=== PATIENT | female | born 1990 | race Caucasian/White ===

== ENCOUNTER → 2016-09-13 | Day surgery (SDC) | payer OTHER ==
[2016-09-04 09:01] VITALS: BMI 26.0
[~2016-09-13] VITALS: Ht 165.1 cm; Wt 70.9 kg
[~2016-09-13] MED LIST: HYDR-5688 PO; LIDOCAINE HCL 2% 2 ML VIAL (20MG/ML) ONE; MIDAZOLAM HCL 1 MG/ML 2ML VIAL ONE; MULT-506 PO; ONDANSETRON INJ 2 MG/ML 2 ML VIAL ONE; POLY335019 PO; PROB1TAB16 PO; PROPOFOL IV EMULSION 10 MG/ML 20 ML VIAL IV ONE; SODIUM CHLORIDE 0.9% 500ML 500 ML IV ONE
[2016-09-13 08:31] VITALS: Ht 165.1 cm; Wt 70.9 kg
--- NOTE | 2016-09-13 08:46 | Endo History and Physical ---
History & Physical Date of Service: Sep 13, 2016. Chief Complaint: BLOOD IN STOOL, GROSS BLOOD ON DIGITAL IMAGE Referring Physician: DR. IVETH MILLS History of Present Illness 26 yo CF who presents for colonoscopy secondary to blood in stool. Past Surgical History Hx Cardiac Surgery: No Hx Internal Defibrillator: No Hx Pacemaker: No Hx Abdominal Surgery: No Hx of Implantable Prosthesis: No Hx Post-Op Nausea and Vomiting: No Hx Cancer Surgery: No Hx Thoracic Surgery: No Hx Orthopedic: No Hx Urinary Tract Surgery: No Family History Polyp Social History Smoking Status: Never Smoker Hx Substance Use: No Hx Alcohol Use: No Allergies Coded Allergies: No Known Allergies (Verified , 09/13/16) Current Medications Reported Home Medications Medications Dose Route/Sig Max Daily Dose Days Date Category Probiotic (Probiotic Product) 1 Tab Tab 1 Tab PO QPM 09/04/16 Reported Multivitamin (Multivitamins) Tab 1 Tab PO QPM 09/04/16 Reported Vital Signs Weight (Kilograms): 70.91 Height (Feet): 5 Height (Inches): 5 Date Time Temp Pulse Resp B/P Pulse Ox O2 Delivery O2 Flow Rate FiO2 09/13/16 08:39 36.6 89 18 141/83 99 Room Air Physical Exam General Appearance: WD/WN, no apparent distress Respiratory/Chest: Auscultation: breath sounds normal Cardiovascular: Heart Auscultation: RRR Abdomen: Bowel Sounds: normal Inspection & Palpation: soft, non-distended, no tenderness, guarding & rebound Assessment and Plan Assessment: 26 yo CF who presents for colonoscopy secondary to blood in stool. Plan: Proceed with colonoscopy.
--- NOTE | 2016-09-13 09:02 | Discharge Instructions ---
Endoscopy Patient Instructions Date / Procedure(s) Performed Sep 13, 2016. Colonoscopy Allergy Information Coded Allergies: No Known Allergies (Verified , 09/13/16) Discharge Date / Findings Sep 13, 2016. Internal hemorrhoids Medication Instructions OK to resume all medications today as prescribed Reported Home Medications Medications Dose Route/Sig Max Daily Dose Days Date Category Probiotic (Probiotic Product) 1 Tab Tab 1 Tab PO QPM 09/04/16 Reported Multivitamin (Multivitamins) Tab 1 Tab PO QPM 09/04/16 Reported Provider Instructions Activity Restrictions - No exercising or heavy lifting for 24 hours. - Do not drink alcohol the day of the procedure. - Do not drive a car or operate machinery until the day after the procedure. - Do not make any important decisions or sign important papers in 24 hours after the procedure. Following Day: - Return to full activity which may include returning to work/school. Diet Start your diet with liquids and light foods (jello, soup, juice, toast). Then eat your usual diet if not nauseated. Treatment For Common After Affects For mild abdominal pain, bloating, or excessive gas: - Rest - Eat lightly - Lie on right side Follow-Up Information Follow-up with DR. IVETH MILLS as scheduled Anesthesia Information What You Should Know You have had a procedure that required some medicine to reduce anxiety and discomfort. This treatment is called moderate sedation. After receiving the treatment, you may be sleepy, but you will be able to breathe on your own. The effects of the treatment may last for several hours. Follow these instructions along with Activity/Diet recommendations noted above: * Do NOT do anything where dizziness or clumsiness would be dangerous. * Rest quietly at home today, then you can be up and about tomorrow. * Have a responsible person stay with you the rest of today. * You may have had an I.V. today. If so, you may take the dressing off later today. Recommendations Call your doctor if: * Trouble breathing * Continuous vomiting for more than 24 hours * Temperature above 101 degrees * Severe abdominal pain or bloating * Pain not relieved by pain medicine ordered * There is increased drainage or redness from any incision * A large amount of rectal bleeding greater than 2-3 tablespoons. (If you had a polyp/s removed or have hemorrhoids, a small amount of blood - from the rectum is to be expected.) * You have any unanswered questions or concerns. IN THE EVENT OF A SERIOUS EMERGENCY, GO TO THE NEAREST EMERGENCY ROOM Your discharge instructions were prepared by provider Efren Mathis. Patient Instructions Signature Page Peace Quigley Patient (or Guardian) Signature/Date: I have read and understand the instructions given to me by my caregivers. Caregiver/RN/Doctor Signature/Date: The above-named patient and/or guardian has received patient instructions on this date. + Original Patient Signature Page (only) stays with chart. Please make copy for patient.
--- NOTE | 2016-09-13 09:05 | GI REPORT ---
Procedure Date: 09/13/2016 8:46 AM Procedure: Colonoscopy Indications: Rectal bleeding Medicines: Monitored Anesthesia Care Complications: No immediate complications. Estimated Blood Loss: Estimated blood loss: none. Procedure: Pre-Anesthesia Assessment: - Prior to the procedure, a History and Physical was performed, and patient medications and allergies were reviewed. The patient's tolerance of previous anesthesia was also reviewed. The risks and benefits of the procedure and the sedation options and risks were discussed with the patient. All questions were answered, and informed consent was obtained. Prior Anticoagulants: The patient has taken no previous anticoagulant or antiplatelet agents. ASA Grade Assessment: I - A normal, healthy patient. After reviewing the risks and benefits, the patient was deemed in satisfactory condition to undergo the procedure. After I obtained informed consent, the scope was passed under direct vision. Throughout the procedure, the patient's blood pressure, pulse, and oxygen saturations were monitored continuously. The scope was introduced through the anus and advanced to the terminal ileum. The colonoscopy was performed without difficulty. The patient tolerated the procedure well. The quality of the bowel preparation was good. The terminal ileum, ileocecal valve, appendiceal orifice, and rectum were photographed. Findings: Non-bleeding internal hemorrhoids were found during retroflexion. The hemorrhoids were small. The exam was otherwise without abnormality. Impression: - Non-bleeding internal hemorrhoids. - The examination was otherwise normal. - No specimens collected. Recommendation: - Resume previous diet. - Continue present medications. - Repeat colonoscopy at age 49 for surveillance. - Return to primary care physician as previously scheduled. Efren Mathis DO 09/13/2016 9:06:08 AM This report has been signed electronically. Note Initiated On: 09/13/2016 8:46 AM I attest to the content of the Intraoperative Record and orders documented therein, exceptions below
[2016-09-13 09:35] VITALS: BP 113/67; PULSE 76; O2SAT 100
--- NOTE | 2016-09-13 15:12 | Anesthesiology Progress Note ---
Anesthesia Post Op Note Date & Time Sep 13, 2016 at 15:12 Vital Signs Pain Intensity: 0 Vital Signs Past 12 Hours Date Time Temp Pulse Resp B/P Pulse Ox O2 Delivery O2 Flow Rate FiO2 09/13/16 09:35 76 16 113/67 100 Room Air 09/13/16 09:20 78 16 119/73 100 Room Air 09/13/16 09:05 82 16 114/67 97 Room Air 09/13/16 08:39 36.6 89 18 141/83 99 Room Air Notes Mental Status: alert / awake / arousable, participated in evaluation Pt Amnestic to Procedure: Yes Nausea / Vomiting: adequately controlled Pain: adequately controlled Airway Patency, RR, SpO2: stable & adequate BP & HR: stable & adequate Hydration State: stable & adequate Anesthetic Complications: no major complications apparent
== END | disposition home or self-care (01) ==
LOC: C.GI 08:10
PROVIDERS: ATTEND Internal Medicine
DX: K62.5 Hemorrhage of anus and rectum (principal); K64.8 Other hemorrhoids

== ENCOUNTER → 2016-09-29 | Outpatient (CLI) | payer OTHER ==
[~2016-09-29] MED LIST changes: -LIDOCAINE HCL 2% 2 ML VIAL (20MG/ML) ONE; -MIDAZOLAM HCL 1 MG/ML 2ML VIAL ONE; -ONDANSETRON INJ 2 MG/ML 2 ML VIAL ONE; -PROPOFOL IV EMULSION 10 MG/ML 20 ML VIAL IV ONE; -SODIUM CHLORIDE 0.9% 500ML 500 ML IV ONE
--- NOTE | 2016-09-29 07:33 | DIAGNOSTIC IMAGING REPORT ---
KUB CLINICAL HISTORY: Abdominal pain. COMPARISON STUDY: None. FINDINGS: The bowel gas pattern is normal. There is a moderate amount of stool within the colon. Two left pelvic calcifications measure up to 6 mm. A 7 mm calcific density projects over the right mid pelvis. IMPRESSION: 1. Several pelvic calcifications which are indeterminate and could reflect phleboliths or distal ureteral calculi. 2. No evidence of bowel obstruction. Electronically signed by: Ramu Mora M.D. 09/29/2016 7:31 AM Dictated Date/Time: 09/29/2016 7:30 AM
== END | disposition home or self-care (01) ==
LOC: C.RAD 07:12
PROVIDERS: ATTEND Nurse Practitioner Family
DX: R10.9 Unspecified abdominal pain (principal)

== ENCOUNTER → 2016-09-29 | Outpatient (CLI) | payer OTHER ==
--- NOTE | 2016-09-29 15:40 | DIAGNOSTIC IMAGING REPORT ---
ABDOMEN AND PELVIS CT WITHOUT CONTRAST CT DOSE: 362.11 mGy.cm HISTORY: Pelvic calcifications R10.9 Abdominal pain TECHNIQUE: Multiaxial CT images of the abdomen and pelvis were performed without contrast. COMPARISON STUDY: Abdominal series dated 09/29/2016 FINDINGS: The lung bases are clear. The unenhanced liver, spleen, gallbladder, pancreas, kidneys, and adrenal glands are within normal limits. No bowel wall thickening or obstruction. The pelvic organs are unremarkable. No suspicious lytic or blastic osseous lesions. The kidneys are considered negative for calcification or hydronephrosis. Mild mesenteric adenitis. Bowel pattern is nonobstructive. Appendix is slightly distended at 7 mm. And contains a 6 x 3 mm appendicolith. Low-grade appendicitis is not excluded. Several faint calcifications left and to a lesser extent right soft tissue pelvis which appear to be vascular. No evidence for an obstructing urinary tract calculus. Uterus is retroflexed. IMPRESSION: 1. Findings consistent with a low-grade appendicitis with a contained appendicolith. 2. Appendix is a maximum diameter of 7.5 mm with a trace amount of periappendiceal infiltrative change. 3. No evidence for abscess collection or obstruction. 4. No evidence for an obstructing urinary tract calculus. Electronically signed by: Randy Zapata M.D. 09/29/2016 3:38 PM Dictated Date/Time: 09/29/2016 3:31 PM
== END | disposition home or self-care (01) ==
LOC: C.CTS 15:19
PROVIDERS: ATTEND Nurse Practitioner Family
DX: R10.9 Unspecified abdominal pain (principal)

== ENCOUNTER 2016-10-03 10:56 | Day surgery (SDC) | payer OTHER ==
[2016-10-02 10:48] VITALS: BMI 25.0
[~2016-10-03] VITALS: Ht 165.1 cm; Wt 69.0 kg
[~2016-10-03 10:56] MED LIST changes: +CEFAZOLIN 2000 MG/60 ML D5W IV SCH; -HYDR-5688 PO; +LACTATED RINGER'S 1000ML 1,000 ML IV SCH
[2016-10-03 11:15] VITALS: BP 132/91; PULSE 88; TEMP 37; O2SAT 99; Ht 165.1 cm; Wt 69.0 kg
[2016-10-03 11:34] LABS: MEAN CELL VOLUME 79.6 fL (80-100); MEAN PLATELET VOLUME 9.6 fL (7.4-10.4); PLATELET COUNT 253 K/uL (130-400); WHITE BLOOD COUNT 6.36 K/uL (4.8-10.8)
[2016-10-03] MEDS ORDERED: HYDR-5688 PO (11:35)
--- NOTE | 2016-10-03 11:37 | Discharge Instructions ---
Discharge Instructions Date of Service Oct 03, 2016. Admission Reason for Admission: Acute Appendicitis, Stone In Appendix Discharge Discharge Diagnosis / Problem: same Discharge Goals Goal(s): Decrease discomfort, Improve function Activity Recommendations Activity Limitations: as noted below Lifting Limitations: no more than 10 pounds Exercise/Sports Limitations: until after follow-up appointment May Resume Sexual Activity: after follow-up appointment Shower/Bathe: tomorrow . Instructions / Follow-Up Instructions / Follow-Up f/u with dr. frank in 1-2 weeks. call [phone] if any problems. Current Hospital Diet Patient's current hospital diet: Discharge Diet Recommended Diet: Regular Diet Procedures Procedures Performed: lap appy Pending Studies Studies pending at discharge: yes List of pending studies: path report Medical Emergencies . Who to Call and When: Medical Emergencies: If at any time you feel your situation is an emergency, please call 911 immediately. . Non-Emergent Contact Non-Emergency issues call your: Surgeon Call Non-Emergent contact if: temperature is above 101, wound has increased drainage, wound has increased redness, wound has increased pain . "Provider Documentation" section prepared by Ben Frank. VTE Core Measure Inpt VTE Proph given/why not?: SCD's
[2016-10-03] MEDS ORDERED: GLYCOPYRROLATE INJ 0.2 MG/ML VIAL ONE ×2 (11:42→12:49)
[2016-10-03] MEDS ORDERED: DEXAMETHASONE SOD INJ 4 MG/ML VIAL ONE (11:42)
[2016-10-03] MEDS ORDERED: NEOSTIGMINE METHYLSULFATE 5 MG/5 ML SYR ONE (11:42)
[2016-10-03] MEDS ORDERED: ONDANSETRON INJ 2 MG/ML 2 ML VIAL ONE (11:42)
[2016-10-03] MEDS ORDERED: ROCURONIUM BROMIDE 10 MG/ML 5 ML VIAL ONE (11:42)
[2016-10-03] MEDS ORDERED: MIDAZOLAM HCL 1 MG/ML 2ML VIAL ONE (11:42)
[2016-10-03] MEDS ORDERED: PROPOFOL IV EMULSION 10 MG/ML 20 ML VIAL IV ONE (11:42)
[2016-10-03] MEDS ORDERED: LIDOCAINE HCL 2% 2 ML VIAL (20MG/ML) ONE (11:42)
[2016-10-03 11:43] LABS: MEAN CORPUSCULAR HGB CONC 35.1 g/dl (32-36)
[2016-10-03] MEDS ORDERED: FENTANYL CITRATE INJ 50 MCG/1 ML 2 ML VIAL ONE ×2 (11:43)
--- NOTE | 2016-10-03 11:43 | History & Physical Bridge Note ---
H&P Re-Evaluation Bridge Note: I have examined the patient, reviewed the History & Physical and in the interval since the performance of the History & Physical I have noted the following changes of clinical significance: No changes noted
[2016-10-03] MEDS ORDERED: LACTATED RINGER'S 1000ML 1,000 ML IV PRN (11:56)
[2016-10-03] MEDS ORDERED: DiphenhydrAMINE HCL 50 MG/ML VIAL IV PRN (12:00)
[2016-10-03] MEDS ORDERED: ONDANSETRON INJ 2 MG/ML 2 ML VIAL IV PRN ×2 (12:00→13:00)
[2016-10-03] MEDS ORDERED: HYDROmorphone INJ 1 MG/ML SYR IV PRN (12:00)
[2016-10-03] MEDS ORDERED: BUPIVACAINE/EPINEPHRINE 0.5% 1:200,000 1.8 ML CARP ONE (12:00)
[2016-10-03] MEDS ORDERED: METOCLOPRAMIDE HCL INJ 5 MG/ML 2 ML VIAL IV PRN (12:00)
[2016-10-03] MEDS ORDERED: BUPIVACAINE/EPINEPHRINE 0.5% MPF 1:200,000 30 ML VIAL ONE (12:03)
[2016-10-03] MEDS ORDERED: LACTATED RINGER'S 1000ML 1,000 ML IV SCH (12:57)
[2016-10-03] MEDS ORDERED: HYDROCODONE/ACETAMOPHEN 5/325MG TAB PO PRN (13:00)
[2016-10-03] MEDS ORDERED: MoRPHine SULFATE 4 MG/ML 1 ML CARP\\VIAL IV PRN (13:00)
--- NOTE | 2016-10-03 13:00 | [facility] Operative Report ---
Operative Report Operative Date Oct 03, 2016. Pre-Operative Diagnosis Appendicitis Post-Operative Diagnosis same Procedure(s) Performed lap appy Surgeon Dr. Frank Chainstitch Binder Surgeon(s) Tez Sánchez PA-C Estimated Blood Loss 10mL Findings mild acute appendicitis Specimens A: Appendix Anesthesia get Complication(s) None Disposition Recovery Room / PACU I attest to the content of the Intraoperative Record and any orders documented therein. Any exceptions are noted below.
[2016-10-03] MEDS: FENTANYL CITRATE INJ 50 MCG/1 ML 2 ML VIAL IV PRN ×3 (13:12→13:24)
--- NOTE | 2016-10-03 13:29 | OPERATIVE REPORT ---
DATE OF OPERATION: 10/03/2016 PREOPERATIVE DIAGNOSIS: Acute appendicitis with appendicolith. POSTOPERATIVE DIAGNOSIS: Same. PROCEDURE: Laparoscopic appendectomy. SURGEON: Dr. Frank. CLOTHER IN: Tez Sánchez PA-C. ESTIMATED BLOOD LOSS: 10 mL COMPLICATIONS: No immediate. ANESTHESIA: General. The patient tolerated the procedure well. OPERATIVE NOTE: After informed consent was obtained, the patient was taken to the operating suite and placed in supine position. After successful intubation, a Reddy catheter was placed and the abdomen was sterilely prepped and draped in usual fashion. A periumbilical incision made with an 11 blade scalpel and carried down through the soft tissue using electrocautery. Anterior rectus fascia was opened using electrocautery and two #0 Vicryl stay sutures were placed. Peritoneum was entered using blunt finger penetration and a finger sweep was performed. A 12 mm Tamika trocar was placed and the abdomen was insufflated to 18 mmHg. Laparoscope was inserted and the abdomen examined 360 degrees. A suprapubic 5 mm port and a left lower quadrant 12 mm port were placed under direct vision. There was a little bit of free fluid in the pelvis but it was serous. There was also a cyst on the right lobe of the liver as seen on CAT scan consistent with her hemangioma. All other anatomy appeared normal. Our focus turned to the right lower quadrant. Her appendix was readily identified and in the mid portion there was actually a thickened, inflamed area, most likely where the appendicolith is located. The appendix itself was somewhat stiff and was consistent with an early or mild acute appendicitis. Because it was not that thickened, we were able to transect the appendix at the base of the cecum and the mesoappendix all with one firing of a BRENNA gunter cartridge 60 mm stapler. There was adequate hemostasis and the staple line looked good at the end of the case. We did suction out the free fluid in the pelvis. I also ran the small-bowel from the terminal ileum backward for several feet and saw no evidence of any other gross pathology. A quick look around the abdomen showed no other issue. The bleeding at the staple line was controlled and we placed the appendix into a bag and removed it from left lower quadrant incision. All the trocars were then removed and the abdomen desufflated. The fascia of the camera port was closed using 0 Vicryl in [id number] fashion and the fascia of the left lower quadrant incision was closed with a simple interrupted 0 Vicryl stitch. Wounds were irrigated and closed with 4-0 Monocryl. Marcaine was injected around them for postoperative analgesia and skin glue used as dressing. The patient was awakened, extubated, and transferred to recovery in stable condition. I attest to the content of the Intraoperative Record and any orders documented therein. Any exceptio ns are noted below.
[2016-10-03 14:05] VITALS: BP 127/75; PULSE 61; TEMP 37.1; O2SAT 99
--- NOTE | 2016-10-03 14:08 | Anesthesiology Progress Note ---
Anesthesia Post Op Note Date & Time Oct 03, 2016 at 14:07 Vital Signs Pain Intensity: 2 Vital Signs Past 12 Hours Date Time Temp Pulse Resp B/P Pulse Ox O2 Delivery O2 Flow Rate FiO2 10/03/16 14:00 78 18 124/74 95 Room Air 10/03/16 13:45 62 18 130/82 95 Room Air 10/03/16 13:35 36.7 68 18 131/81 98 Room Air 10/03/16 13:25 60 12 128/78 95 Room Air 10/03/16 13:15 61 17 124/81 100 Mask 10 10/03/16 13:05 70 19 127/81 100 Mask 10 10/03/16 12:59 36.3 76 16 129/81 100 Mask 10 10/03/16 11:15 37 88 20 132/91 99 Room Air Notes Mental Status: alert / awake / arousable, participated in evaluation Pt Amnestic to Procedure: Yes Nausea / Vomiting: adequately controlled Pain: adequately controlled Airway Patency, RR, SpO2: stable & adequate BP & HR: stable & adequate Hydration State: stable & adequate Anesthetic Complications: no major complications apparent Pt doing well.
[2016-10-03 14:35] VITALS: BP 127/79; PULSE 68; O2SAT 99
[2016-10-03 15:00] VITALS: BP 126/75; PULSE 76; TEMP 37.1; O2SAT 98
== END 2016-10-03 15:30 | disposition home or self-care (01) ==
LOC: C.ACU 10:56
PROVIDERS: ATTEND Surgery
DX: K35.80 Unspecified acute appendicitis (principal); K38.9 Disease of appendix, unspecified; Z98.818 Other dental procedure status; Z83.3 Family history of diabetes mellitus; Z68.25 Body mass index [BMI] 25.0-25.9, adult

== ENCOUNTER → 2016-12-29 | Outpatient (CLI) | payer OTHER ==
[~2016-12-29] MED LIST changes: -CEFAZOLIN 2000 MG/60 ML D5W IV SCH; +HYDR-5688 PO; -LACTATED RINGER'S 1000ML 1,000 ML IV SCH
[2016-12-29 18:21] LABS: URINE APPEARANCE CLEAR (CLEAR); URINE BILIRUBIN NEG (NEG); URINE COLOR YELLOW; URINE NITRITE NEG (NEG); URINE PH 5.5 (4.5-7.5); URINE SPECIFIC GRAVITY 1.024 (1.000-1.030); UROBILINOGEN NEG (NEG)
[2016-12-29 18:37] LABS: MANUAL MICROSCOPIC REQUIRED? NO; REVIEW REQ? NO
== END | disposition home or self-care (01) ==
LOC: C.LABSPEC 17:47
PROVIDERS: ATTEND Obstetrics & Gynecology
DX: Z34.90 Encounter for supervision of normal pregnancy, unspecified, unspecified trimester (principal)

== ENCOUNTER → 2017-01-05 | Outpatient (CLI) | payer OTHER ==
[2017-01-09 01:02] LABS: CHLAMYDIA TRACH RNA*** NOT DETECTED (NOT DETECTED); GC (NEIS GONORRHOEAE)RNA** NOT DETECTED (NOT DETECTED)
== END | disposition home or self-care (01) ==
LOC: C.LABSPEC 17:29
PROVIDERS: ATTEND Obstetrics & Gynecology
DX: Z34.90 Encounter for supervision of normal pregnancy, unspecified, unspecified trimester (principal)

== ENCOUNTER → 2017-01-05 | Outpatient (CLI) | payer OTHER ==
[2017-01-05 09:32] LABS: BASO % 0.2 %; BASO ABS # 0.01 K/uL (0-0.2); COMPLETE YES; EOS % 0.8 %; HEMATOCRIT 41.7 % (37-47); IG% 0.3 %; LYMPH % 25.9 %; LYMPH ABS # 1.71 K/uL (1.2-3.4); MEAN CELL VOLUME 81.8 fL (80-100); MEAN CORPUSCULAR HEMOGLOBIN 27.5 pg (25-34); MEAN CORPUSCULAR HGB CONC 33.6 g/dl (32-36); MEAN PLATELET VOLUME 10.8 fL (7.4-10.4); NEUT % 64.8 %; PLATELET COUNT 242 K/uL (130-400)
[2017-01-05 09:50] LABS: CHOLESTEROL/HDL RATIO 2.8
== END | disposition home or self-care (01) ==
LOC: C.LAB 07:18
PROVIDERS: ATTEND Obstetrics & Gynecology
DX: Z34.90 Encounter for supervision of normal pregnancy, unspecified, unspecified trimester (principal)

== ENCOUNTER → 2017-03-09 | Outpatient (CLI) | payer OTHER ==
[2017-03-09 16:41] LABS: BASO % 0.1 %; BASO ABS # 0.01 K/uL (0-0.2); COMPLETE YES; EOS % 1.7 %; HEMATOCRIT 37.4 % (37-47); IG% 0.3 %; LYMPH % 26.6 %; LYMPH ABS # 2.08 K/uL (1.2-3.4); MEAN CELL VOLUME 83.9 fL (80-100); MEAN CORPUSCULAR HEMOGLOBIN 28.5 pg (25-34); MEAN PLATELET VOLUME 10.3 fL (7.4-10.4); MONO % 6.4 %; NEUT % 64.9 %; PLATELET COUNT 235 K/uL (130-400); RED BLOOD COUNT 4.46 M/uL (4.2-5.4); WHITE BLOOD COUNT 7.82 K/uL (4.8-10.8)
[2017-03-09 18:59] LABS: GTGD 50 Grams
== END | disposition home or self-care (01) ==
LOC: C.LAB1850 15:14
PROVIDERS: ATTEND Obstetrics & Gynecology
DX: Z34.81 Encounter for supervision of other normal pregnancy, first trimester (principal); K62.5 Hemorrhage of anus and rectum

== ENCOUNTER → 2017-03-17 | Outpatient (CLI) | payer OTHER | END | disposition home or self-care (01) | LOC: C.LAB 07:05 | PROVIDERS: ATTEND Obstetrics & Gynecology | DX: O28.1 Abnormal biochemical finding on antenatal screening of mother (principal); Z3A.00 Weeks of gestation of pregnancy not specified ==

== ENCOUNTER → 2017-07-20 | Outpatient (CLI) | payer OTHER ==
[~2017-07-20] MED LIST changes: -HYDR-5688 PO
== END | disposition home or self-care (01) ==
LOC: C.LABSPEC 18:13
PROVIDERS: ATTEND Obstetrics & Gynecology
DX: Z34.93 Encounter for supervision of normal pregnancy, unspecified, third trimester (principal)

== ENCOUNTER 2017-08-09 20:08 | Inpatient (IN) | payer OTHER ==
[~2017-08-09] VITALS: Ht 165.1 cm; Wt 79.0 kg
[2017-08-09] MEDS ORDERED: OXYTOCIN 30 UNITS/500ML NSS IV ONE (20:12)
[2017-08-09] MEDS ORDERED: LANOLIN OINT EXT PRN (20:30)
[2017-08-09] MEDS ORDERED: ACETAMINOPHEN 325 MG TAB PO PRN (20:30)
[2017-08-09] MEDS ORDERED: OXYTOCIN 30 UNITS/500ML NSS IV PRN (20:30)
[2017-08-09] MEDS ORDERED: DIPHTHERIA/TETANUS/PERTUSSIS 0.5 ML SYR/VIAL IM. ONE (20:30)
[2017-08-09] MEDS ORDERED: SUPERCREAM 0.870 % 15GM JAR EXT PRN (20:30)
[2017-08-09] MEDS ORDERED: BENZOCAINE 20% AER SPR 82.5 GM CAN EXT PRN (20:30)
[2017-08-09] MEDS ORDERED: METHYLERGONOVINE MALEATE 0.2 MG/ML AMP IM ONE (20:30)
[2017-08-09] MEDS ORDERED: ACETAMINOPHEN/CODEINE 300/30MG TAB PO PRN ×2 (20:30)
[2017-08-09] MEDS ORDERED: OXYTOCIN INJ 10 UNITS/ML VIAL ONE (20:40)
[2017-08-09] MEDS: IBUPROFEN 600 MG TAB PO PRN (20:56)
--- NOTE | 2017-08-09 21:53 | DELIVERY SUMMARY ---
DATE OF OPERATION: 08/09/2017 FINDINGS: Viable female with Apgars of 8 and 9. The baby delivered spontaneously over a midline second-degree laceration. Cord blood samples obtained. Placenta delivered spontaneously. The laceration repaired with 4-0 Vicryl in a routine fashion. Estimated blood loss 300 mL. LABOR NOTE: The patient is a 27-year-old 2, para 1 with an EDC of 17 August by dates and first trimester ultrasound who presented to labor and delivery in active labor. The patient had been having prodromal contractions throughout the day but they had increased in intensity. She had spontaneous rupture of membranes at approximately 1900 hours and contractions became very strong. The patient had a benign course. Her blood type is A positive, antibody negative, rubella immune, hepatitis B negative. She had an elevated 1-hour Glucola at 16 weeks with normal 2-hour glucose tolerances at both 16 and 28 weeks. She had a negative third trimester beta strep culture. Upon admission, the patient was in active labor. Cervical examination showed the patient to be fully dilated and she uncontrollably began to push. The patient pushed for approximately 10 minutes delivering the viable female infant with description as above. Cord was clamped and cut. Cord blood samples were obtained. Placenta delivered spontaneously. Midline laceration was repaired under local anesthesia with 4-0 Vicryl in a routine fashion. Sponge and needle count was correct. Estimated blood loss 300 mL. I attest to the content of the Intraoperative Record and any orders documented therein. Any exception s are noted below.
[2017-08-09 22:03] VITALS: Ht 165.1 cm; Wt 79.0 kg
[2017-08-09] MEDS ORDERED: BUPIVACAINE 0.25% 30 ML VIAL ONE (22:44)
[2017-08-09] MEDS ORDERED: EpHEDrine SULFATE INJ 50 MG/ML AMP ONE (22:44)
[2017-08-09] MEDS ORDERED: FENTANYL CITRATE INJ 50 MCG/1 ML 2 ML VIAL ONE (22:45)
[2017-08-09] MEDS ORDERED: FENTANYL 2MCG/ML ROPIV 1.25MG/ML 100ML BAG EPI ONE (22:45)
[2017-08-09 23:00] VITALS: BP 121/77; PULSE 87; TEMP 36.4
[2017-08-10] MEDS: IBUPROFEN 600 MG TAB PO PRN ×2 (02:31→18:57)
[2017-08-10 03:35] VITALS: BP 110/73; PULSE 77; TEMP 36.7
[2017-08-10 05:59] LABS: HEMATOCRIT 35.4 % (37-47); HEMOGLOBIN 12.3 g/dL (12.0-16.0)
--- NOTE | 2017-08-10 06:23 | Progress Note ---
Subjective Aug 10, 2017. Subjective conversation w/ patient (Patient seen and examined at bedside), physical exam Ambulation: ambulating normally Voiding: no voiding problems Diet Tolerance: Regular Diet Lochia: Moderate Feeding Type: Breast Feeding Pain: 2/10 cramping pain, improved with analgesia Review of Systems Constitutional: No fever, No chills Respiratory: No shortness of breath Cardiac: No chest pain Abdomen: No nausea, No vomiting Female : No dysuria Objective Vital Signs Date Time Temp Pulse Resp B/P (MAP) Pulse Ox O2 Delivery O2 Flow Rate FiO2 08/10/17 03:35 36.7 77 18 110/73 (85) Room Air 08/09/17 23:00 Room Air 08/09/17 23:00 36.4 87 16 121/77 (92) Room Air Physical Exam General Appearance: WELL-APPEARING, WD/WN, NO APPARENT DISTRESS Respiratory/Chest: lungs clear, normal breath sounds Cardiovascular: regular rate, rhythm Abdomen: soft Fundus: Firm, Non-Tender, Relation to Umbilicus (2 below) Extremities: no calf tenderness Laboratory Results Last 24 Hours Test 08/10/17 05:40 Hemoglobin 12.3 g/dL Hematocrit 35.4 % Medications Current Inpatient Medications Medications (Trade) Dose Ordered Sig/Nena Route Start Time Stop Time Status Last Admin Dose Admin Oxytocin (Pitocin IV) 30 units UD PRN IV 08/09/17 20:30 09/08/17 20:29 Benzocaine (Dermoplast Aero Spr) 1 appln PRN PRN EXT 08/09/17 20:30 09/08/17 20:29 08/10/17 02:33 1 APPLN Cocaine HCl (Supercream 0.870% Cr) BID PRN EXT 08/09/17 20:30 08/23/17 20:29 Lanolin (Lanolin Oint) PRN PRN EXT 08/09/17 20:30 09/08/17 20:29 Prenat Multivit/ [place]/Iron/Folic Ac ( Vitamin Tab) 1 tab DAILY PO 08/10/17 08:00 09/09/17 07:59 Ibuprofen (Motrin Tab) 600 mg Q4H PRN PO 08/09/17 20:30 09/08/17 20:29 08/10/17 02:31 600 MG Acetaminophen (Tylenol Tab) 650 mg Q6H PRN PO 08/09/17 20:30 09/08/17 20:29 Acetaminophen/ Codeine Phosphate (Tylenol w/ Codeine #3 Tab) 1 tab Q4H PRN PO 08/09/17 20:30 09/08/17 20:29 08/09/17 21:21 1 TAB Acetaminophen/ Codeine Phosphate (Tylenol w/ Codeine #3 Tab) 2 tab Q4H PRN PO 08/09/17 20:30 09/08/17 20:29 Bisacodyl (Dulcolax Tab) 5 mg 20 PO 08/10/17 20:00 08/10/17 20:01 Docusate Sodium (coLACE CAP) 100 mg BID PO 08/10/17 08:00 09/09/17 07:59 Ferrous Sulfate (Feosol Tab) 325 mg DAILY PO 08/10/17 08:00 09/09/17 07:59 Assessment and Plan Post- Day#: 1 Continue Routine Care: 27 year old s/p NVD day 1 - pt doing well clinically - A+, Rubella immune, GBS -ve - vitals reviewed and wnl - continue to encourage ambulation, and analgesia prn Resident Physician Supervision Note: I interviewed and examined the patient. Discussed with Dr. Baldwin and agree with findings and plan as documented in the note. Any exceptions or clarifications are listed here: [None] Documented By: Geovany Flores Resident Tracking Resident Involvement: Resident Care Provided Care Provided: OB Delivery
--- NOTE | 2017-08-10 06:52 | Discharge Instructions ---
Discharge Instructions Date of Service Aug 10, 2017. Admission Reason for Admission: Supervision Or Normal Intruaterine Discharge Discharge Diagnosis / Problem: Vaginal Delivery Discharge Goals Goal(s): Routine recovery after delivery Medications Continue Dispensed Medications: supercream, dermaplast, tucks, lansinoh Activity Recommendations Activity Limitations: per Instructions/Follow-up section . Instructions / Follow-Up Instructions / Follow-Up ACTIVITY RECOMMENDATIONS: * Gradual return to full activity over the next 2-3 weeks. * No lifting - nothing heavier than baby over the next 2-3 weeks. * Do not engage in vigorous exercise, sexual activity or sports until cleared by your physician. * Do not drive or operate any motorized equipment until cleared by your physician. * You may shower/bathe daily. MEDICATIONS: For discomfort or pain, you may use Acetaminophen (Tylenol), Ibuprofen (Advil), or Naproxen (Aleve) following the package directions. For constipation you may use Colace following the package directions. BREAST CARE: If you are not breast feeding: * Wear a supportive bra 24 hours a day for one to two weeks. * Avoid stimulating your breasts and nipples as much as possible during the first few weeks after delivery. * When taking a shower, have the warm water hit your back, not breasts. * When your breasts feel full, apply ice packs. Usually three to four times a day helps ease the discomfort. * Take a mild pain medication (Tylenol / Motrin) when you are uncomfortable. If breast feeding: * Use breast milk to lubricate nipples. Lansinoh cream may be used for sore nipples. You do not need to remove cream prior to breast feeding. If using a different brand of cream, check the label for directions regarding removal of cream prior to nursing. * Wear a supportive bra. * If having problems with breasts or breast feeding, call a client consultant or your health care provider. EPISIOTOMY CARE: After delivery, if you have an episiotomy (stitches), the following steps will ease discomfort and aid healing. * For the first 24 hours after delivery, place ice packs next to your episiotomy to help reduce swelling. * After the first 24 hour-period, sitz baths, either portable or in the tub, are suggested. A shower with a shower arm sprayed over the episiotomy may be comforting. * Danelle care should be done after each voiding and bowel movement. Squirt warm water from a plastic bottle over the perineum (region of the body between the anus and urinary opening) and pat dry. * Use Dermoplast to ease discomfort. Shake container. [place] directly over the episiotomy. Place a Tucks on a clean sanitary pad next to your episiotomy. SPECIAL CARE INSTRUCTIONS: When you are discharged from the hospital, it is important for you to follow the instructions listed below: * During the first week at home, you should be able to care for yourself and your baby. In addition, the usual light household activities are encouraged. * Limit your activities to the way you feel. Do not try to clean the house or move furniture. Be sensible. * If you actively engage in sports and have done so up until the time of your delivery, you may resume these activities as soon as you feel able. This may take up to one month or even longer. Use good judgment. * Continue to take your vitamins for at least six weeks after the of your baby. * Your diet need not be limited unless you were on a special diet before your delivery. Breast-feeding mothers need around 2500 calories per day and at least 64-80 ounces of fluid per day (8 to 10 glasses). * You should eat foods from the four major food groups. Crash diets or fad diets are to be avoided. Eating lean meats, fresh fruits and vegetables, low-fat dairy products, high fiber foods and a regular exercise program, will help you get back to your pre- weight without putting your health at risk. * Constipation is sometimes a problem after delivery. Take a mild laxative as needed. If breast feeding, Milk of Magnesia is acceptable to use. You may use a suppository or Fleets enema if no episiotomy. * A daily shower or tub bath is suggested. Be sure to thoroughly and gently dry the perineum. * A bloody vaginal discharge will usually continue until around four weeks post . A small amount of bleeding may continue for as long as six weeks. Vaginal discharge changes from the bright red bleeding after delivery to pink then brownish and finally yellowish-pink before becoming white and disappearing. * Bleeding may increase with activity. Your first period may come in 4-8 weeks. If you are breast feeding, your period may be delayed even longer. * [place]o (sex) can begin whenever both you and your partner feel comfortable and do not have any form of genital infection. It is recommended that you wait at least six weeks for internal and external healing to occur. If you have questions, please talk to your health care practitioner. A condom should be used to prevent infection and . * Foreplay, gentle intercourse and lubrication is very important the first several times to prevent pain. A water-based lubricant such as K-Y jelly or Astroglide may be used. * If you have RH negative blood and your baby is RH positive, you will receive RHOGAM by injection prior to discharge. The nurse will give you a card to keep with you that has the date and place that you received RHOGAM after delivery. * During your care, you had a Rubella screen done to check for the presence of rubella antibodies in your blood. If your test was negative, you will receive a Rubella vaccine prior to discharge. This vaccine may cause a fever, soreness at the injection site and flu-like symptoms. If these symptoms persist, notify your health care practitioner. is not advised for one month after a Rubella vaccine. * Verbalizes understanding of car seat law as reviewed with patient nursing. * Car Seat hand-out given and reviewed with patient by nursing. * Shaken baby information reviewed with patient by nursing. Call you doctor if: * Heavy bleeding (saturating several pads an hour) or passing clots the size of your fist. * A fever >101 degrees F (38.3 degrees C) on two occasions four hours apart and /or chills. * Unusual pain in the pelvic or vaginal areas. * "Baby Blues" lasting longer than two weeks. If you have any questions or concerns, call your health care practitioner at . FOLLOW UP VISIT: * Please call the office at to schedule a 6 week examination. It is important you keep this appointment. It is important for you to make arrangements for either yearly or twice yearly check-ups thereafter. Current Hospital Diet Patient's current hospital diet: Regular OB Diet Discharge Diet Recommended Diet: Regular Diet Pending Studies Studies pending at discharge: no Medical Emergencies . Who to Call and When: Medical Emergencies: If at any time you feel your situation is an emergency, please call 911 immediately. . Non-Emergent Contact Non-Emergency issues call your: Primary Care Provider . . "Provider Documentation" section prepared by Margaret Baldwin. . VTE Core Measure Inpt VTE Proph given/why not?: Treatment not indicated
[2017-08-10 08:00] VITALS: BP 118/72; PULSE 60; TEMP 36.6
[2017-08-10] MEDS: DOCUSATE SODIUM 100 MG CAP PO SCH ×2 (08:09→20:30)
[2017-08-10] MEDS: PRENATAL VITAMIN TAB PO SCH (08:09)
[2017-08-10] MEDS: FERROUS SULFATE 325 MG TAB PO SCH (08:10)
[2017-08-10 12:40] VITALS: BP 131/80; PULSE 76; TEMP 36.7
[2017-08-10 15:30] VITALS: BP 122/81; PULSE 71; TEMP 36.6
[2017-08-10] MEDS ORDERED: BISACODYL 5 MG TABEC PO SCH (20:00)
[2017-08-10 20:30] VITALS: BP 127/79; PULSE 85; TEMP 36.6
[2017-08-10 23:45] VITALS: BP 100/71; PULSE 65; TEMP 36.6; O2SAT 97
--- NOTE | 2017-08-11 06:27 | Progress Note ---
Subjective Aug 11, 2017. Subjective conversation w/ patient (Patient seen and examined at bedside) Ambulation: ambulating normally Voiding: no voiding problems Diet Tolerance: Regular Diet Lochia: Moderate Feeding Type: Breast Feeding Pain: 1-2 cramping pain, improved with analgesia Review of Systems Constitutional: No fever, No chills Respiratory: No shortness of breath Cardiac: No chest pain Abdomen: No nausea, No vomiting Female : No dysuria Objective Vital Signs Date Time Temp Pulse Resp B/P (MAP) Pulse Ox O2 Delivery O2 Flow Rate FiO2 08/10/17 23:45 36.6 65 18 100/71 (81) 97 Room Air 08/10/17 23:45 97 Room Air 08/10/17 20:30 36.6 85 18 127/79 (95) Room Air 08/10/17 20:30 Room Air 08/10/17 15:30 Room Air 08/10/17 15:30 36.6 71 20 122/81 (95) Room Air 08/10/17 12:40 36.7 76 20 131/80 (97) 08/10/17 08:00 36.6 60 16 118/72 (87) Physical Exam General Appearance: WELL-APPEARING, WD/WN, NO APPARENT DISTRESS Respiratory/Chest: lungs clear, normal breath sounds Cardiovascular: regular rate, rhythm Abdomen: soft Fundus: Firm, Non-Tender, Relation to Umbilicus (3 below) Extremities: no calf tenderness Medications Current Inpatient Medications Medications (Trade) Dose Ordered Sig/Nena Route Start Time Stop Time Status Last Admin Dose Admin Oxytocin (Pitocin IV) 30 units UD PRN IV 08/09/17 20:30 09/08/17 20:29 Benzocaine (Dermoplast Aero Spr) 1 appln PRN PRN EXT 08/09/17 20:30 09/08/17 20:29 08/10/17 02:33 1 APPLN Cocaine HCl (Supercream 0.870% Cr) BID PRN EXT 08/09/17 20:30 08/23/17 20:29 Lanolin (Lanolin Oint) PRN PRN EXT 08/09/17 20:30 09/08/17 20:29 Prenat Multivit/ Pie Cutter/Iron/Folic Ac ( Vitamin Tab) 1 tab DAILY PO 08/10/17 08:00 3/18/18 07:59 08/10/17 08:09 1 TAB Ibuprofen (Motrin Tab) 600 mg Q4H PRN PO 08/09/17 20:30 09/08/17 20:29 08/10/17 18:57 600 MG Acetaminophen (Tylenol Tab) 650 mg Q6H PRN PO 08/09/17 20:30 09/08/17 20:29 08/10/17 06:33 650 MG Acetaminophen/ Codeine Phosphate (Tylenol w/ Codeine #3 Tab) 1 tab Q4H PRN PO 08/09/17 20:30 09/08/17 20:29 08/09/17 21:21 1 TAB Acetaminophen/ Codeine Phosphate (Tylenol w/ Codeine #3 Tab) 2 tab Q4H PRN PO 08/09/17 20:30 09/08/17 20:29 Docusate Sodium (coLACE CAP) 100 mg BID PO 08/10/17 08:00 09/09/17 07:59 08/10/17 20:30 100 MG Ferrous Sulfate (Feosol Tab) 325 mg DAILY PO 08/10/17 08:00 09/09/17 07:59 08/10/17 08:10 325 MG Assessment and Plan Post- Day#: 2 Continue Routine Care: Resident Physician Supervision Note: I was present with during the history and exam. I discussed the case with the resident and agree with the findings and plan as documented in the note. Any exceptions or clarifications are listed here: [None] Documented By: Edilia Ortiz 27 year old s/p NVD day 2 - pt doing well clinically - A+, Rubella immune, GBS -ve - vitals reviewed and wnl - continue to encourage ambulation, and analgesia prn - will review d/c instructions as pt ready for discharge today Resident Tracking Resident Involvement: Resident Care Provided Care Provided: OB Delivery
[2017-08-11 07:30] VITALS: BP 110/65; PULSE 59; TEMP 36.4
[2017-08-11] MEDS: PRENATAL VITAMIN TAB PO SCH (07:48)
[2017-08-11] MEDS: FERROUS SULFATE 325 MG TAB PO SCH (07:48)
[2017-08-11] MEDS: DOCUSATE SODIUM 100 MG CAP PO SCH (07:48)
[2017-08-11 10:59] VITALS: BP_DIAS 65; PULSE 59; TEMP 36.4
== END 2017-08-11 11:29 | disposition home or self-care (01) | DRG 775 ==
LOC: C.OPB 20:08 → C.LD 20:08 → C.OPB 20:27 → C.LD 20:27 → C.OBG 22:51
PROVIDERS: ADMIT Obstetrics & Gynecology; ATTEND Obstetrics & Gynecology
PROC: 10E0XZZ Delivery of Products of Conception, External Approach (ICD-10-PCS; principal; 2017-08-09)
PROC: 0KQM0ZZ Repair Perineum Muscle, Open Approach (ICD-10-PCS; principal; 2017-08-09)
DX: O70.1 Second degree perineal laceration during delivery (principal); Z37.0 Single live birth